=== PATIENT | male | born 1975 | race Caucasian/White ===

== ENCOUNTER 2018-05-23 17:55 | Emergency (ER) | payer MEDICARE, BC, MEDICAID ==
[~2018-05-23] VITALS: Ht 177.8 cm; Wt 79.4 kg
[~2018-05-23 17:55] MED LIST: ERYTHROMYCIN E3.5 G1 OPHTHALMIC; MULTIVITAMINS1 EAC7; VICODIN 5-5001 EACH PO
[2018-05-23 18:00] VITALS: BP 142/86
== END 2018-05-23 18:22 | disposition home or self-care (01) ==
LOC: M.ERS 17:55
DX: F10.129 Alcohol abuse with intoxication, unspecified (principal); Y90.9 Presence of alcohol in blood, level not specified

== ENCOUNTER 2018-11-09 21:00 | Emergency (ER) | payer MEDICARE, BC, MEDICAID ==
[~2018-11-09] VITALS: Ht 172.7 cm; Wt 80.3 kg
[2018-11-09] MEDS ORDERED: BACTRIM DS TAB1 EACH PO (21:30)
[2018-11-09] MEDS ORDERED: KEFLEX500 M1 PO (21:30)
[2018-11-09] MEDS ORDERED: NAPROSYN500 MG PO (21:31)
[2018-11-09 21:51] VITALS: BP 162/88
== END 2018-11-09 21:53 | disposition home or self-care (01) ==
LOC: M.ERS 21:00
DX: L02.11 Cutaneous abscess of neck (principal); L72.3 Sebaceous cyst